=== PATIENT | male | born 1975 | race Caucasian/White ===

== ENCOUNTER 2018-09-17 12:43 | Emergency (ER) | payer OTHER ==
[2018-09-17 13:06] VITALS: BP 124/75
--- NOTE | 2018-09-17 13:08 | UC ---
FLU HPI - HPI Summary HPI Summary: 42 yo male presents with feeling hot/cold, body aches, fatigue, dry cough, and right rib pain. He tells me that his symptoms began on 09/14 - he took tylenol/ ibuprofen and rested and felt better. These symptoms persisted the weekend and into today. Today, however, he reports feeling significantly improved. Yesterday he noticed some right rib pain that is worse with movement and to touch the area. He has not had anymore instances of fever/chills. Denies SOB, chest pain, abdominal pain - History of Current Complaint Chief Complaint: UCGeneralIllness Stated Complaint: flu like symp Time Seen by Provider: 09/17/18 13:08 Hx Obtained From: Patient Onset/Duration: Sudden Onset Severity Currently: Moderate Severity Initially: Moderate Pain Intensity: 7 Pain Scale Used: 0-10 Numeric - Allergy/Home Medications Allergies/Adverse Reactions: Allergies Allergy/AdvReac Type Severity Reaction Status Date / Time No Known Allergies Allergy Verified 09/17/18 13:00 Home Medications: Home Medications Atorvastatin* [Lipitor*] 10 mg PO DAILY 09/17/18 [History Confirmed 09/17/18] Insulin Pump/Infus. Set/Meter [Accu-Chek Combo System] 1 each MC DAILY 09/17/18 [History Confirmed 09/17/18] Losartan TAB* [Cozaar TAB*] 50 mg PO DAILY 09/17/18 [History Confirmed 09/17/18] PMH/Surg Hx/FS Hx/Imm Hx Endocrine History: Dyslipidemia Cardiovascular History: Hypertension - Surgical History Surgical History: None - Family History Known Family History: Positive: Cardiac Disease - father of [place], Diabetes - type I DM - father - Social History Occupation: Employed Full-time Lives: With Family Alcohol Use: Weekly Substance Use Type: None Smoking Status (MU): Never Smoked Tobacco Review of Systems All Other Systems Reviewed And Are Negative: Yes Constitutional: Positive: Fever, Fatigue, Other - Body aches Skin: Positive: Negative Eyes: Positive: Negative ENT: Positive: Negative Respiratory: Positive: Cough Cardiovascular: Positive: Negative Gastrointestinal: Positive: Negative Neurovascular: Positive: Negative Musculoskeletal: Positive: Other: - Right rib pain Neurological: Positive: Negative Psychological: Positive: Negative Physical Exam - Summary Physical Exam Summary: GENERAL: NAD. WDWN. No pain distress. SKIN: No rashes, sores, lesions, or open wounds. HEENT: Head: AT/NC Eyes: EOM intact. Conjunctiva clear without inflammation or discharge. Ears: Hearing grossly normal. TMs intact, no bulging, erythema, or edema. Nose: Nasal mucosa pink and moist. NTTP maxillary and frontal sinus. Throat: Posterior oropharynx without exudates, erythema, or tonsillar enlargement. Uvula midline. NECK: Supple. Nontender. No lymphadenopathy. CHEST: CTAB. No r/r/w. No accessory muscle use. Breathing comfortably and in no distress. CV: RRR. Without m/r/g. Pulses intact. Cap refill <2seconds MSK: Right rib: TTP along 9th midaxillary rib. Pain reproduced with bending and twisting. NEURO: Alert. PSYCH: Age appropriate behavior. Triage Information Reviewed: Yes Vital Signs: Initial Vital Signs Temp 98.8 F 09/17/18 13:02 Pulse 76 09/17/18 13:02 Resp 16 09/17/18 13:02 BP 124/75 09/17/18 13:02 Pulse Ox 100 09/17/18 13:02 Laboratory Tests 09/17/18 13:34 Influenza A (Rapid) Positive A Vital Signs Reviewed: Yes Flu Course/Dx - Course Course Of Treatment: CXR: IMPRESSION: #. No evidence for pneumonia. No evidence for acute intrathoracic disease. POC flu positive. His symptoms are improving and he is outside of the window for tamiflu to benefit him. I suspect his right rib pain is due to a muscle strain from recent coughing and one episode of vomiting. Advised to rest, drink plenty of fluids, and continue tylenol/ibuprofen. - Differential Dx/Diagnosis Provider Diagnosis: Influenza, Muscle strain Discharge - Sign-Out/Discharge Documenting (check all that apply): Patient Departure All imaging exams completed and their final reports reviewed: Yes - Discharge Plan Condition: Stable Disposition: HOME Patient Education Materials: Influenza (ED) Referrals: Monster Hugo MD [Primary Care Provider] - Additional Instructions: If you develop a fever, shortness of breath, chest pain, new or worsening symptoms - please call your PCP or go to the ED. 1) Rest and drink plenty of fluids! 2) May take tylenol/ibuprofen for discomfort - Billing Disposition and Condition Condition: STABLE Disposition: Home
[2018-09-17 13:39] LABS: Influenza A Molecular POSITIVE (Negative)
== END 2018-09-17 13:45 | disposition home or self-care (01) ==
LOC: UCEAST 12:43
DX: J10.1 Influenza due to other identified influenza virus with other respiratory manifestations (principal); S29.019A Strain of muscle and tendon of unspecified wall of thorax, initial encounter; X58.XXXA Exposure to other specified factors, initial encounter; Y92.9 Unspecified place or not applicable; E78.5 Hyperlipidemia, unspecified; I10 Essential (primary) hypertension; Z82.49 Family history of ischemic heart disease and other diseases of the circulatory system; Z83.3 Family history of diabetes mellitus
CPT/HCPCS: 71046; 99211; G0463